=== PATIENT | male | born 1990 | race Caucasian/White ===

== ENCOUNTER 2017-09-15 04:01 | Emergency (ER) | payer MEDICAID ==
[~2017-09-15] VITALS: Ht 188 cm; Wt 64.4 kg
[2017-09-15 04:06] VITALS: BP 133/84
--- NOTE | 2017-09-15 04:06 | NUR ---
TO BED # 12 AMBULATORY , REPORT GIVEN TO SALIMA RN
--- NOTE | 2017-09-15 04:10 | NUR ---
PATIENT IS A 27 Y/O MALE WHO PRESENTS TO THE ED C/O VOMITING. PT STATES THAT IT HAS BEEN GOING X1 DAY. PT REPORTS 8/10 ACHING UPPER ABD PAIN THAT DOES NOT RADIATE. PT DENIES CP, SOB, REPORTS NAUSEA/VOMITING DENIES DIARRHEA. PT AWAKE AND ALERT, RR EVEN/UNLABORED. PT REPOSITIONED FOR COMFORT, BED IN LOWEST POSITION. ER MD DR. LOZANO NOTIFIED. WILL CONTINUE TO MONITOR.
[2017-09-15] MEDS ORDERED: PANTOPRAZOLE 40 MG INJ VIAL IVP ONE (04:35)
[2017-09-15] MEDS ORDERED: ONDANSETRON 4 MG/2 ML VIAL IVP ONE (04:35)
[2017-09-15] MEDS ORDERED: NACL 0.9% 2,000 ML IV ONE (04:35)
--- NOTE | 2017-09-15 04:36 | NUR ---
PATIENT UNABLE TO PRODUCE URINE AT THIS TIME.
[2017-09-15 05:11] LABS: ALBUMIN 5.5 g/dL (3.4-5.0); ANION GAP 15.9 (8-16); ASPARTATE AMINOTRANSFERASE 14 U/L (15-37); CHLORIDE 103 mmol/L (98-107); CREATININE 1.1 mg/dL (0.7-1.3); GFR ARICAN-AMERICAN 105 mL/min (>90); GLUCOSE 151 mg/dL (74-106); POTASSIUM 3.9 mmol/L (3.5-5.1); SODIUM SERUM 139 mmol/L (136-145); TOTAL BILIRUBIN 1.5 mg/dL (0.0-1.0); UREA NITROGEN, BLOOD 10 mg/dL (7-18)
[2017-09-15] MEDS ORDERED: KETOROLAC 15 MG/ML VIAL IVP ONE (05:30)
[2017-09-15 05:31] LABS: ACETAMINOPHEN < 0.5 ug/ml (10-30); SALICYLATE < 2.8 mg/dL (2.8-20.0)
--- NOTE | 2017-09-15 05:32 | NUR ---
PATIENT TAKEN TO XRAY WITH TECH VIA WHEELCHAIR.
--- NOTE | 2017-09-15 05:53 | NUR ---
PATIENT PROVIDED URINE AT THIS TIME.
[2017-09-15 06:04] LABS: BARBITURATE, URINE NEG. ng/ml (NEG <=200); BENZODIAZEPINE, URINE NEG. ng/mL (NEG <=200); CANNABINOID, URINE POS. ng/mL (NEG <=50); COCAINE, URINE NEG. ng/mL (NEG <=300); OPIATE, URINE NEG. ng/mL (NEG <=2000); PHENCYCLIDINE SCREEN,URINE NEG. ng/mL (NEG <=25)
[2017-09-15 06:45] VITALS: BP 128/91
--- NOTE | 2017-09-15 06:45 | NUR ---
Patient discharged with v/s stable. Written and verbal after care instructions given and explained. Patient alert, oriented and verbalized understanding of instructions. Ambulatory with steady gait. All questions addressed prior to discharge. ID band removed. Patient advised to follow up with PMD. Rx of ZOFRAN 4MG, MAALOX, CELEBREX 200MG AND PROTONIX 40MG given. Patient educated on indication of medication including possible reaction and side effects. Opportunity to ask questions provided and answered.
[2017-09-15 06:47] LABS: HEMATOCRIT 49.6 % (36-52); HEMOGLOBIN 16.7 g/dL (12.0-18.0); MEAN CORPUSCULAR HEMOGLOBIN 29 pg (27-31); MEAN CORPUSCULAR HGB CONC 34 g/dL (33-37); MEAN CORPUSCULAR VOLUME 85.7 fL (80-94); PLATELET COUNT (AUTO) 292 K/uL (140-450); RED BLOOD CELL COUNT(AUTO) 5.79 MIL/uL (4.20-6.10); RED CELL DISTRIBUTION WIDTH 12.8 % (11.6-13.7); WHITE BLOOD COUNT (AUTO) 7.5 K/uL (4.8-10.8)
[2017-09-15 07:51] LABS: EOSINOPHILS % (AUTO) 0.2 % (0.0-4.0); LYMPHOCYTES # (AUTO) 0.8 K/uL (2.0-11.5); MONOCYTES # (AUTO) 0.4 K/uL (0.8-1.0); MONOCYTES % (AUTO) 5.9 % (1.7-9.3); NEUTROPHILS # (AUTO) 6.3 K/uL (1.8-7.7)
[2017-09-15 07:52] LABS: LYMPHOCYTES % (AUTO) 10.2 % (20.5-51.1); NEUTROPHILS % (AUTO) 83.7 % (42.2-75.2)
== END 2017-09-15 06:45 | disposition home or self-care (01) ==
LOC: MED 04:01
DX: K29.70 Gastritis, unspecified, without bleeding (principal); F19.10 Other psychoactive substance abuse, uncomplicated; R03.0 Elevated blood-pressure reading, without diagnosis of hypertension
CPT/HCPCS: 36415; 74022; 80053; 80305; 83605; 83690; 85025; 93005; 96361; 96374; 96375; 99285; C9113; G0480; G0482; J1885; J2405; J7030

== ENCOUNTER 2020-09-03 07:18 | Emergency (ER) | payer SELFPAY ==
[~2020-09-03] VITALS: Ht 188 cm; Wt 64.9 kg
[2020-09-03 07:19] VITALS: BP 153/88
--- NOTE | 2020-09-03 07:24 | NUR ---
PATIENT AMBULATED TO BED 9.
--- NOTE | 2020-09-03 07:25 | NUR ---
Patient being evaluated by DR LR at bedside.
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
--- NOTE | 2020-09-03 07:44 | NUR ---
XRAY AT BEDSIDE
[2020-09-03 08:42] VITALS: BP 153/88
== END 2020-09-03 08:43 | disposition home or self-care (01) ==
LOC: MED 07:18
DX: S62.335A Displaced fracture of neck of fourth metacarpal bone, left hand, initial encounter for closed fracture (principal); W22.01XA Walked into wall, initial encounter; Y93.89 Activity, other specified; Y92.89 Other specified places as the place of occurrence of the external cause; Y99.8 Other external cause status
CPT/HCPCS: 73130; 99283

== ENCOUNTER 2021-07-19 18:35 | Emergency (ER) | payer BC ==
[~2021-07-19] VITALS: Ht 188 cm; Wt 65.8 kg
[2021-07-19 18:53] VITALS: BP 114/68
--- NOTE | 2021-07-19 18:59 | NUR ---
[place] [facility] in [facility] - 07/19/21 at 1900 by [email or web address] PT AMB TO BED 8.
--- NOTE | 2021-07-19 19:01 | NUR ---
PT AMB TO BED 6.
[2021-07-19] MEDS ORDERED: NAPR-54 PO (19:12)
--- NOTE | 2021-07-19 19:20 | NUR ---
NO NURSING CARE RENDERED. Patient discharged with v/s stable. Written and verbal after care instructions given. Patient alert, oriented and verbalized understanding of instructions. Ambulatory with steady gait. All questions addressed prior to discharge. ID band removed. Patient advised to follow up with PMD. Rx of NAPROXEN given. Opportunity to ask questions provided and answered. WORK HANDED TO PATIENT.
== END 2021-07-19 19:20 | disposition home or self-care (01) ==
LOC: MED 18:35
DX: S80.01XA Contusion of right knee, initial encounter (principal); Z79.899 Other long term (current) drug therapy; X58.XXXA Exposure to other specified factors, initial encounter; Y93.71 Activity, boxing; Y92.89 Other specified places as the place of occurrence of the external cause; Y99.8 Other external cause status
CPT/HCPCS: 99282

== ENCOUNTER 2023-08-04 13:52 | Emergency (ER) | payer SELFPAY ==
[~2023-08-04] VITALS: Ht 185.4 cm; Wt 65.8 kg
[~2023-08-04 13:52] MED LIST: NAPR-337 PO
[2023-08-04 14:23] VITALS: BP 124/85; PULSE 67; RESP 18; TEMP 98.6; O2SAT 100
[2023-08-04] MEDS: FLUORESCEIN OPTH STRIP 1 MG OP ONE (15:43)
[2023-08-04] MEDS: TETRACAINE HCL/PF 0.5% OPTH 4 ML BTL OP ONE (15:43)
[2023-08-04] MEDS ORDERED: IBUP-2213 PO (16:45)
[2023-08-04] MEDS ORDERED: CIPR10DR4 OP (16:46)
== END 2023-08-04 17:00 | disposition home or self-care (01) ==
LOC: MED 13:52
DX: S05.02XA Injury of conjunctiva and corneal abrasion without foreign body, left eye, initial encounter (principal); I25.10 Atherosclerotic heart disease of native coronary artery without angina pectoris; Z79.899 Other long term (current) drug therapy; X58.XXXA Exposure to other specified factors, initial encounter; Y93.89 Activity, other specified; Y92.89 Other specified places as the place of occurrence of the external cause; Y99.8 Other external cause status
CPT/HCPCS: 99283